=== PATIENT | female | born 1940 | race Caucasian/White ===

== ENCOUNTER 2017-11-20 12:16 | Inpatient (IN) | payer MEDICARE ==
[~2017-11-20] VITALS: Ht 160 cm; Wt 79.0 kg
[~2017-11-20 12:16] MED LIST: CEFAZOLIN 1,000 MG ONE; DEXAMETHASONE 4 MG/ML, 1ML ONE; KETOROLAC 30 MG/1 ML ONE; ONDANSETRON 2MG/ML, 2ML ONE; PROPOFOL 10 MG/ML, 20ML ONE
[2017-11-20] MEDS ORDERED: SODIUM CHLORIDE FLUSH 10ML SYR IVF ONE (13:00)
[2017-11-20 13:26] LABS: BASOPHILS # (AUTO) 0.02 x10^3/uL (0-0.1); BASOPHILS % (AUTO) 0 % (0-1); EOSINOPHILS # (AUTO) 0.05 x10^3/uL (0-0.4); EOSINOPHILS % (AUTO) 1 % (1-7); LYMPHOCYTES % (AUTO) 13 % (22-44); MD NO; MEAN CORPUSCULAR HEMOGLOBIN 30.7 pg (27.0-34.8); MEAN CORPUSCULAR HGB CONC 33.6 g/dL (32.4-35.8); MEAN CORPUSCULAR VOLUME 91.4 fL (80-100); MEAN PLATELET VOLUME 7.4 fL (7.4-10.4); MONOCYTES # (AUTO) 0.74 x10^3/uL (0.2-0.8); MONOCYTES % (AUTO) 7 % (2-9); NEUTROPHILS # (AUTO) 8.97 x10^3/uL (1.8-6.8); NEUTROPHILS % (AUTO) 80 % (42-75); PLATELET COUNT 265 x10^3/uL (130-400); RED BLOOD COUNT 4.18 x10^6/uL (3.82-5.3); RED CELL DISTRIBUTION WIDTH 13.6 % (9.6-15.2)
[2017-11-20 13:37] LABS: ALBUMIN 3.6 g/dL (3.4-5.0); ANION GAP 10 mmol/L (5-15); CHLORIDE 103 mmol/L (98-107); MICROSCOPIC INDICATED
[2017-11-20 13:38] LABS: CULTURE INDICATED? YES
[2017-11-20 13:40] LABS: ALANINE AMINOTRANSFERASE 21 U/L (12-78); ALKALINE PHOSPHATASE 80 U/L (45-117); BILIRUBIN,TOTAL 0.5 mg/dL (0.2-1.0); CREATININE 0.89 mg/dL (0.55-1.02); TOTAL PROTEIN 8.2 g/dL (6.4-8.2)
[2017-11-20] MEDS ORDERED: SODIUM CHLORIDE 0.9% 1,000 ML IV ONE (16:00)
[2017-11-20] MEDS ORDERED: ONDANSETRON ODT 4 MG PO PRN (16:00)
[2017-11-20] MEDS ORDERED: SODIUM CHLORIDE FLUSH 10ML SYR IVF PRN (16:00)
[2017-11-20] MEDS ORDERED: POLYETHYLENE GLYCOL 17 GM PACKET PO PRN (16:00)
[2017-11-20] MEDS ORDERED: ONDANSETRON 2MG/ML, 2ML IVPush PRN (16:00)
[2017-11-20] MEDS ORDERED: LABETALOL 5MG/ML, 20ML IVPush PRN (16:00)
[2017-11-20] MEDS: D5%-0.45% NACL 1,000 ML IV SCH ×2 (16:04→23:44)
[2017-11-20 16:15] VITALS: BP 161/73
[2017-11-20] MEDS ORDERED: FENTANYL PF 100 MCG/2ML ONE (18:12)
[2017-11-20] MEDS ORDERED: GENTAMICIN 80 MG/2 ML ONE (18:36)
[2017-11-20] MEDS ORDERED: hydrALAzine 20 MG/ML, 1ML IV PRN (19:00)
[2017-11-20] MEDS ORDERED: OXYcodone 5 MG/5 ML ORAL.SOL UDC PO PRN (19:00)
[2017-11-20] MEDS ORDERED: ACETAMINOPHEN 325 MG TABLET PO PRN (19:00)
[2017-11-20] MEDS ORDERED: PROCHLORPERAZINE 5 MG/ML, 2ML IV PRN (19:00)
[2017-11-20] MEDS ORDERED: HYDROmorphone 1 MG/ML, 1ML IV PRN (19:00)
[2017-11-20] MEDS ORDERED: FENTANYL PF 100 MCG/2ML IV PRN (19:00)
[2017-11-20] MEDS ORDERED: MEPERIDINE/PF 25MG/0.5ML IVPush PRN (19:00)
[2017-11-20] MEDS ORDERED: DIPHENHYDRAMINE 50 MG/ML, 1ML IVPush PRN (19:00)
[2017-11-20] MEDS ORDERED: LABETALOL 5MG/ML, 20ML IV PRN (19:00)
[2017-11-20] MEDS ORDERED: MEPERIDINE/PF 50 MG/ML ONE (19:57)
[2017-11-20] MEDS ORDERED: LABETALOL 5MG/ML, 20ML ONE (20:03)
[2017-11-20 20:38] VITALS: BP 131/58
[2017-11-20 23:50] VITALS: BP 116/75
[2017-11-21 00:23] LABS: CULTURE INDICATED? YES; MICROSCOPIC INDICATED
[2017-11-21 01:03] VITALS: BP 117/52
[2017-11-21 03:55] VITALS: BP 118/55
[2017-11-21] MEDS ORDERED: ACETAMINOPHEN 500 MG TABLET PO PRN ×2 (04:30→05:00)
[2017-11-21 05:23] LABS: BASOPHILS # (AUTO) 0.01 x10^3/uL (0-0.1); BASOPHILS % (AUTO) 0 % (0-1); EOSINOPHILS % (AUTO) 0 % (1-7); LYMPHOCYTES # (AUTO) 0.42 x10^3/uL (1-3.4); LYMPHOCYTES % (AUTO) 4 % (22-44); MD NO; MEAN CORPUSCULAR HEMOGLOBIN 31.7 pg (27.0-34.8); MEAN CORPUSCULAR HGB CONC 34.3 g/dL (32.4-35.8); MEAN CORPUSCULAR VOLUME 92.5 fL (80-100); MEAN PLATELET VOLUME 7.7 fL (7.4-10.4); MONOCYTES # (AUTO) 0.48 x10^3/uL (0.2-0.8); MONOCYTES % (AUTO) 5 % (2-9); NEUTROPHILS # (AUTO) 9.02 x10^3/uL (1.8-6.8); NEUTROPHILS % (AUTO) 91 % (42-75); PLATELET COUNT 198 x10^3/uL (130-400); RED BLOOD COUNT 3.44 x10^6/uL (3.82-5.3); RED CELL DISTRIBUTION WIDTH 13.7 % (9.6-15.2)
[2017-11-21 05:31] LABS: CHLORIDE 104 mmol/L (98-107)
[2017-11-21 05:36] LABS: ALANINE AMINOTRANSFERASE 17 U/L (12-78); ALBUMIN 2.7 g/dL (3.4-5.0); ALKALINE PHOSPHATASE 72 U/L (45-117); ANION GAP 10 mmol/L (5-15); BILIRUBIN,TOTAL 0.5 mg/dL (0.2-1.0); CALCIUM 8.3 mg/dL (8.5-10.1); CREATININE 0.92 mg/dL (0.55-1.02); TOTAL PROTEIN 6.7 g/dL (6.4-8.2)
[2017-11-21 06:47] VITALS: BP 119/65
[2017-11-21] MEDS: D5%-0.45% NACL 1,000 ML IV SCH (07:44)
[2017-11-21] MEDS ORDERED: SENNA/DOCUSATE TABLET PO SCH (09:00)
== END 2017-11-21 12:10 | disposition home or self-care (01) | DRG 660 ==
LOC: ED 13:06 → EDIP 14:58 → 4NOR 16:10 → DCLOUNGE 11-21 11:45
PROVIDERS: ADMIT Internal Medicine; ATTEND Internal Medicine
PROC: 0TF78ZZ Fragmentation in Left Ureter, Via Natural or Artificial Opening Endoscopic (ICD-10-PCS; 2017-11-20)
PROC: 0T778DZ Dilation of Left Ureter with Intraluminal Device, Via Natural or Artificial Opening Endoscopic (ICD-10-PCS; principal; 2017-11-20 18:30)
DX: N13.2 Hydronephrosis with renal and ureteral calculous obstruction (principal); E44.1 Mild protein-calorie malnutrition; N13.0 Hydronephrosis with ureteropelvic junction obstruction; R31.9 Hematuria, unspecified; Z96.659 Presence of unspecified artificial knee joint; I10 Essential (primary) hypertension; Z82.3 Family history of stroke; Z82.49 Family history of ischemic heart disease and other diseases of the circulatory system; Z87.891 Personal history of nicotine dependence
CPT/HCPCS: 36415; 74018; 74176; 76000; 76770; 80053; 81001; 83690; 83735; 84100; 84439; 85025; 87086; 99285; G0378; J0690; J1100; J1885; J2175; J2405; J2704; J3010; C1758; C1769; C2617; J1580; J7030

== ENCOUNTER → 2017-12-22 | Outpatient (CLI) | payer MEDICARE | END | disposition home or self-care (01) | LOC: CFH 11:17 | PROVIDERS: ATTEND Urology | DX: N20.2 Calculus of kidney with calculus of ureter (principal) | CPT/HCPCS: 74018; 76770 ==

== ENCOUNTER 2019-02-12 11:45 | Emergency (ER) | payer MEDICARE ==
[~2019-02-12] VITALS: Ht 160 cm; Wt 72.1 kg
[2019-02-12] MEDS ORDERED: DIPH,PERTUSS(ACELL),TET VAC/PF 0.5 ML IM-VACC ONE ×2 (12:30→13:25)
[2019-02-12 12:43] LABS: BASOPHILS # (AUTO) 0.04 x10^3/uL (0-0.1); BASOPHILS % (AUTO) 1 % (0-1); EOSINOPHILS # (AUTO) 0.18 x10^3/uL (0-0.4); EOSINOPHILS % (AUTO) 3 % (1-7); LYMPHOCYTES # (AUTO) 2.31 x10^3/uL (1-3.4); LYMPHOCYTES % (AUTO) 33 % (22-44); MD NO; MEAN CORPUSCULAR HEMOGLOBIN 30.5 pg (27.0-34.8); MEAN CORPUSCULAR HGB CONC 33.7 g/dL (32.4-35.8); MEAN CORPUSCULAR VOLUME 90.5 fL (80-100); MEAN PLATELET VOLUME 7.4 fL (7.4-10.4); MONOCYTES # (AUTO) 0.48 x10^3/uL (0.2-0.8); MONOCYTES % (AUTO) 7 % (2-9); NEUTROPHILS # (AUTO) 3.97 x10^3/uL (1.8-6.8); NEUTROPHILS % (AUTO) 57 % (42-75); PLATELET COUNT 285 x10^3/uL (130-400); RED BLOOD COUNT 4.22 x10^6/uL (3.82-5.3); RED CELL DISTRIBUTION WIDTH 13.6 % (9.6-15.2)
[2019-02-12 13:00] LABS: ANION GAP 5 mmol/L (5-15); CALCIUM 9.1 mg/dL (8.5-10.1); CHLORIDE 109 mmol/L (98-107); CREATININE 0.75 mg/dL (0.55-1.02)
--- NOTE | 2019-02-12 13:21 | NUR ---
band cutter: pt ambulatory to ED room 28 from [facility] in [facility]
--- NOTE | 2019-02-12 13:31 | NUR ---
PT TO ED FOR SWELLING AND PAIN TO LEFT 4TH DIGIT AFTER KITTEN SCRATCH 4.5 MONTHS AGO. PT STATES WAS SEEN MULTIPLE TIMES AND PRESCRIBED ABX AND ANTI-INFLAMMATORY MEDICAITONS. FINGER IS STILL PAINFUL AND SWOLLEN AFTER COMPLETING MEDICATIONS. PT CONNECTED TO ALL MONITORS. VSS. NO NEEDS EXPRESSED. CALL LIGHT WITHIN REACH. LABS AND XR COMPLETE AND RESULTED. PT MEDICATED PER APR. AWAITING RECHECK.
[2019-02-12 13:36] VITALS: BP 159/62
== END 2019-02-12 14:19 | disposition home or self-care (01) ==
LOC: ED 13:25
DX: R22.31 Localized swelling, mass and lump, right upper limb (principal); M79.89 Other specified soft tissue disorders
CPT/HCPCS: 36415; 80048; 82040; 85025; 90471; 90715; 99284